=== PATIENT | female | born 1955 | race Caucasian/White ===

== ENCOUNTER 2018-06-09 16:22 | Emergency (ER) | payer BC ==
[~2018-06-09] VITALS: Ht 172.7 cm; Wt 76.2 kg
[2018-06-09] MEDS ORDERED: NORCO 5-325 TA1 EACH PO (18:33)
[2018-06-09 18:47] VITALS: BP 150/79
== END 2018-06-09 18:49 | disposition home or self-care (01) ==
LOC: M.ERS 16:22
DX: S80.812A Abrasion, left lower leg, initial encounter (principal); W00.0XXA Fall on same level due to ice and snow, initial encounter; Y93.89 Activity, other specified; Y92.89 Other specified places as the place of occurrence of the external cause; Y99.8 Other external cause status

== ENCOUNTER 2019-04-15 17:31 | Emergency (ER) | payer BC, OTHER ==
[~2019-04-15] VITALS: Ht 172.7 cm; Wt 86.2 kg
[~2019-04-15 17:31] MED LIST: NORCO 5-325 TA1 EACH PO
[2019-04-15] MEDS ORDERED: PERCOCET 10-321 EAC1 PO (17:52)
[2019-04-15] MEDS ORDERED: CHANTIX1 MG PO (17:54)
[2019-04-15] MEDS ORDERED: ASA81BEC PO (17:54)
[2019-04-15] MEDS ORDERED: FLEXERIL PO ×3 (17:55→18:19)
[2019-04-15 19:09] VITALS: BP 145/80
== END 2019-04-15 19:10 | disposition home or self-care (01) ==
LOC: M.ERS 17:31
DX: S32.020A Wedge compression fracture of second lumbar vertebra, initial encounter for closed fracture (principal); W10.8XXA Fall (on) (from) other stairs and steps, initial encounter; Y93.89 Activity, other specified; Y92.89 Other specified places as the place of occurrence of the external cause; Y99.8 Other external cause status

== ENCOUNTER 2020-05-05 11:46 | Emergency (ER) | payer BC, OTHER ==
[~2020-05-05] VITALS: Ht 167.6 cm; Wt 104.3 kg
[~2020-05-05 11:46] MED LIST changes: +ASA81BEC PO; +CHANTIX1 MG PO; +FLEXERIL PO; +PERCOCET 10-321 EAC1 PO
[2020-05-05] MEDS ORDERED: BACLOFEN 10MG T10 MG PO (11:58)
[2020-05-05] MEDS ORDERED: NORCO 10-325 T1 EACH PO (11:59)
[2020-05-05] MEDS ORDERED: ALPRAZOLAM XR3 MG PO (11:59)
[2020-05-05] MEDS ORDERED: DRIZALMA SPRINK30 MG PO (11:59)
[2020-05-05] MEDS ORDERED: LIPITOR40 MG PO (12:00)
[2020-05-05] MEDS ORDERED: TRIAMTERENE/HCT1 CA1 PO (12:00)
[2020-05-05] MEDS ORDERED: PROTONIX40 M2 PO (12:00)
[2020-05-05] MEDS ORDERED: PEPCID20 MG PO (12:34)
[2020-05-05] MEDS ORDERED: PREDNISONE 20 M20 M1 PO (12:34)
[2020-05-05] MEDS ORDERED: ZYRTEC 10 MG TA10 MG PO (12:34)
[2020-05-05 13:41] VITALS: BP 164/80
--- NOTE | 2020-05-06 10:18 | EKG ---
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
== END 2020-05-05 13:42 | disposition home or self-care (01) ==
LOC: M.ERS 11:46
DX: L50.9 Urticaria, unspecified (principal); G89.29 Other chronic pain; M32.9 Systemic lupus erythematosus, unspecified; M79.7 Fibromyalgia; Z90.49 Acquired absence of other specified parts of digestive tract; Z90.710 Acquired absence of both cervix and uterus